=== PATIENT | female | born 2000 | race Caucasian/White ===

== ENCOUNTER 2022-08-30 07:00 | Inpatient (IN) | payer OTHER ==
[2022-08-30] MEDS ORDERED: ELECTROLYTE-148 SOLN 1,000 ML IV SCH (09:15)
[2022-08-30 10:11] LABS: BASO % 0.1 % (0-2.0); HEMATOCRIT 36.3 % (32.4-45.2); HEMOGLOBIN 12.2 GM/dL (10.7-15.3); LYMPH % 7.7 % (8-40); MCH 31.6 pg (25.7-33.7); MCHC 33.5 g/dl (32.0-36.0); MEAN CELL VOLUME 94.4 fl (80-96); MEAN PLT VOLUME 9.3 fl (7.5-11.1); MONO % 3.1 % (3.8-10.2); NEUT % 89.1 % (42.8-82.8); PLATELET COUNT 206 10^3/uL (134-434); RBC 3.85 M/mm3 (3.60-5.2); RDW 14.2 % (11.6-15.6)
[2022-08-30 10:16] LABS: INR 0.93 (0.83-1.09); PROTHROMBIN TIME (PATIENT) 10.7 SEC (9.7-13.0)
[2022-08-30 10:19] VITALS: BMI 24.6
[2022-08-30 10:25] LABS: CALCIUM 8.4 mg/dL (8.5-10.1)
[2022-08-30 10:26] LABS: BLOOD UREA NITROGEN 8.3 mg/dL (7-18)
[2022-08-30 10:30] LABS: CREATININE 0.5 mg/dL (0.55-1.3)
[2022-08-30] MEDS ORDERED: FENTANYL/BUPIVACAINE/NS/PF - PCEA - 50 ML DISP.SYRIN EP ONE (10:34)
[2022-08-30] MEDS ORDERED: NALOXONE HCL 0.4 MG/ML VIAL IVPUSH PRN (10:37)
[2022-08-30] MEDS ORDERED: BUPIVACAINE HCL/PF 0.25% (2.5MG/ML) 10 ML VIAL ONE (10:40)
[2022-08-30] MEDS ORDERED: FENTANYL CITRATE/PF 50 MCG/ML VIAL ONE (10:40)
[2022-08-30] MEDS ORDERED: FENTANYL/BUPIVACAINE/NS/PF - PCEA - 50 ML DISP.SYRIN EP SCH (10:45)
[2022-08-30] MEDS ORDERED: PROMETHAZINE HCL 25 MG/1 ML VIAL ONE (10:52)
[2022-08-30] MEDS ORDERED: BUTORPHANOL TARTRATE 1 MG/ML VIAL IVPUSH ONE (10:54)
[2022-08-30] MEDS ORDERED: OXYTOCIN 20 UNITS in 0.9% NS 20 UNIT/1,000 ML INFUS.BAG IV ONE ×2 (11:55→13:26)
[2022-08-30] MEDS: OXYTOCIN 20 UNITS in 0.9% NS 20 UNIT/1,000 ML INFUS.BAG IV SCH ×2 (11:55→13:30)
[2022-08-30] MEDS ORDERED: METHYLERGONOVINE MALEATE 0.2 MG/1 ML AMP IM PRN (12:37)
[2022-08-30] MEDS ORDERED: ACETAMINOPHEN 325 MG TABLET (FP) PO PRN (12:37)
[2022-08-30] MEDS ORDERED: WITCH HAZEL 50% (TUCKS) 40 PAD/JAR PAD TP PRN (12:37)
[2022-08-30] MEDS ORDERED: oxyCODONE HCL 5 MG TABLET PO PRN (12:37)
[2022-08-30] MEDS ORDERED: BENZOCAINE 20% 57 GM BOTTLE TP PRN (12:37)
[2022-08-30] MEDS ORDERED: BENZOCAINE 28 GM HEMORRHOIDAL OINTMENT TP PRN (12:37)
[2022-08-30] MEDS ORDERED: BISACODYL 10 MG SUPP.RECT RC PRN (12:37)
[2022-08-30] MEDS ORDERED: IBUPROFEN 600 MG TABLET (FP) PO ONE (12:53)
[2022-08-30] MEDS: IBUPROFEN 600 MG TABLET (FP) PO PRN ×2 (12:55→17:04)
[2022-08-30 13:29] LABS: CORD BASE EXCESS -8.9 mmol/L (0-2); CORD HCO3 18.9 mmHg (20-29); CORD PCO2 47.2 mmHg (30-78); CORD pH 7.22 (7.14-7.44)
[2022-08-30 13:30] LABS: CORD BASE EXCESS -5.6 mmol/L (0-2); CORD HCO3 19.6 mmHg (20-29); CORD PCO2 37.6 mmHg (30-78); CORD pH 7.334 (7.14-7.44)
[2022-08-30 13:38] LABS: COCAINE, UR NEGATIVE (NEGATIVE); OPIATES, URI NEGATIVE (NEGATIVE); URINE AMPHETAMINES NEGATIVE (NEGATIVE)
[2022-08-30 13:39] LABS: METHADONE, UR NEGATIVE (NEGATIVE); PHENCYCLIDINE,URINE NEGATIVE (NEGATIVE); URINE BARBITURATES NEGATIVE (NEGATIVE)
[2022-08-30 13:45] LABS: URINE BENZODIAZEPINES NEGATIVE (NEGATIVE)
[2022-08-30 15:54] LABS: HIV INTERPRETATION NEGATIVE (NEGATIVE)
[2022-08-30] MEDS: FERROUS SO4 325 MG TABLET (FP) PO SCH (17:05)
[2022-08-31 07:54] LABS: BASO % 0.3 % (0-2.0); EOS % 0.2 % (0-4.5); HEMATOCRIT 32.4 % (32.4-45.2); HEMOGLOBIN 10.9 GM/dL (10.7-15.3); MCHC 33.8 g/dl (32.0-36.0); MEAN CELL VOLUME 94.7 fl (80-96); MEAN PLT VOLUME 9.1 fl (7.5-11.1); MONO % 5.4 % (3.8-10.2); NEUT % 80.1 % (42.8-82.8); PLATELET COUNT 174 10^3/uL (134-434); RBC 3.42 M/mm3 (3.60-5.2); RDW 14.2 % (11.6-15.6); WHITE BLOOD COUNT 11.2 K/mm3 (4.0-10.0)
[2022-08-31] MEDS: FERROUS SO4 325 MG TABLET (FP) PO SCH ×2 (08:58→18:08)
[2022-08-31] MEDS: IBUPROFEN 600 MG TABLET (FP) PO PRN (08:59)
[2022-08-31] MEDS: PRENATAL VITAMINS W/ FOLIC ACID TABLET (FP) PO SCH (10:37)
[2022-08-31] MEDS ORDERED: SENNOSIDES/DOCUSATE COMBO (SENNA PLUS) TABLET (UD) PO PRN (22:00)
[2022-09-01] MEDS: FERROUS SO4 325 MG TABLET (FP) PO SCH (09:19)
[2022-09-01] MEDS: PRENATAL VITAMINS W/ FOLIC ACID TABLET (FP) PO SCH (09:19)
[2022-09-01 14:12] VITALS: BP 130/66; PULSE 72; RESP 20; TEMP 98.8
== END 2022-09-01 14:20 | disposition home or self-care (01) | DRG 560 ==
LOC: JDEL 07:00 → JLDR 09:00 → J3W 13:50
PROVIDERS: ADMIT Obstetrics & Gynecology; ATTEND Obstetrics & Gynecology
PROC: 10E0XZZ Delivery of Products of Conception, External Approach (ICD-10-PCS; principal; 2022-08-30)
PROC: 0W8NXZZ Division of Female Perineum, External Approach (ICD-10-PCS; 2022-08-30)
PROC: 0HQ9XZZ Repair Perineum Skin, External Approach (ICD-10-PCS; 2022-08-30)
DX: O70.0 First degree perineal laceration during delivery (principal); Z3A.39 39 weeks gestation of pregnancy; Z37.0 Single live birth
CPT/HCPCS: 0241U-QW; 36415; 36600; 59025; 59409; 80048; 80307; 82803; 85025; 85610; 85730; 86780; 86850; 86900; 86901; 87389